=== PATIENT | male | born 1980 | race Caucasian/White ===

== ENCOUNTER 2021-10-25 20:42 | Emergency (ER) | payer SELFPAY ==
[2021-10-25] MEDS ORDERED: Doxycycline 100 MG Cap PO ONE (21:33)
[2021-10-25] MEDS ORDERED: Sulfamethoxazole/Trimethoprim 800-160 MG Tab PO ONE (21:34)
== END 2021-10-25 22:00 | disposition home or self-care (01) ==
LOC: JD.ED 20:42
DX: L03.116 Cellulitis of left lower limb (principal); Z87.891 Personal history of nicotine dependence
CPT/HCPCS: 99283; A9270-GY